=== PATIENT | male | born 1945 | race Caucasian/White ===

== ENCOUNTER 2023-07-27 09:40 | Emergency (ER) | payer MEDICARE, MEDICAID ==
[~2023-07-27] VITALS: Ht 167.6 cm; Wt 54.5 kg
[2023-07-27] MEDS ORDERED: TAMS0.4C34 PO (10:08)
[2023-07-27] MEDS ORDERED: PYRI-9 PO (10:08)
[2023-07-27] MEDS ORDERED: AMLO-257 PO (10:08)
[2023-07-27 10:09] VITALS: TEMP 93.8
[2023-07-27] MEDS ORDERED: FOLI-130 PO (10:13)
[2023-07-27] MEDS ORDERED: PANT-31 PO (10:13)
[2023-07-27] MEDS ORDERED: THIA100T80 PO (10:13)
[2023-07-27 10:55] LABS: BASOPHILS % (AUTO) 0.1 % (0.0-2.0); EOSINOPHILS % (AUTO) 1.6 % (1.0-6.0); HEMATOCRIT 25.9 % (41-53); LYMPHOCYTES # (AUTO) 0.7 K/uL (1.0-4.8); LYMPHOCYTES % (AUTO) 8.3 % (22.0-44.0); MEAN CORPUSCULAR HEMOGLOBIN 32.5 pg (26.0-34.0); MEAN CORPUSCULAR HGB CONC 34.7 G/dL (31.0-37.0); MEAN CORPUSCULAR VOLUME 94 fL (80-100); MONOCYTES # (AUTO) 1.1 K/uL (0.1-1.0); MONOCYTES % (AUTO) 13.6 % (2.0-9.0); NEUTROPHILS # (AUTO) 6.1 K/uL (1.8-7.7); NEUTROPHILS % (AUTO) 76.4 % (40.0-70.0); PLATELET COUNT (AUTO) 302 K/uL (150-450); RED BLOOD CELL COUNT(AUTO) 2.76 MIL/uL (4.50-5.90); RED CELL DISTRIBUTION WIDTH 16.1 % (11.5-14.5)
[2023-07-27 11:09] LABS: CREATININE 3.48 mg/dL (0.60-1.30); POTASSIUM 3.8 mmol/L (3.5-5.1)
[2023-07-27 11:26] LABS: GLUCOMETER DEV NAME(LOC) ERT.5; GLUCOSE,POINT OF CARE 100 MG/DL (70-110)
[2023-07-27 14:06] VITALS: BP 160/76; PULSE 71; RESP 20
[2023-07-27 18:46] LABS: GLUCOMETER DEV NAME(LOC) ERT.5; GLUCOSE,POINT OF CARE 159 MG/DL (70-110)
[2023-07-27 18:51] LABS: GLUCOMETER DEV NAME(LOC) ERT.5; GLUCOSE,POINT OF CARE 149 MG/DL (70-110)
== END 2023-07-27 17:32 | disposition home or self-care (01) ==
LOC: EMS 09:48
DX: E11.22 Type 2 diabetes mellitus with diabetic chronic kidney disease (principal); E11.649 Type 2 diabetes mellitus with hypoglycemia without coma; I13.2 Hypertensive heart and chronic kidney disease with heart failure and with stage 5 chronic kidney disease, or end stage renal disease; N18.6 End stage renal disease; R41.82 Altered mental status, unspecified; G93.41 Metabolic encephalopathy; D64.9 Anemia, unspecified; E78.00 Pure hypercholesterolemia, unspecified; Z99.2 Dependence on renal dialysis; Z79.4 Long term (current) use of insulin; Z98.890 Other specified postprocedural states
CPT/HCPCS: 71045; 80048; 82948; 82962; 85025; 93005; 99285; 36415-L1; 36415-TC